=== PATIENT | female | born 1970 | race Caucasian/White ===

== ENCOUNTER 2016-08-10 13:44 | Inpatient (IN) ==
--- NOTE | 2016-08-10 14:44 | Emergency Department Note ---
START Narrative - START START: I have examined and evaluated the patient with the resident and agree with her findings assessment and plan. I sprig direct [id number] time with the patient. The patient has had recurrent bloody stool. She has lost weight. She was seen by her primary care provider who noted an extremely low hemoglobin and recommended the patient come to the ED. The patient denies chest pain shortness of breath or charlette abdominal pain there is no history of syncope leg swelling or coughing up blood. She has no major medical problems. She has no history of cancer or Crohn's disease or ulcerative colitis. The patient has had no fever. She complains of generalized weakness. She is being treated for UTI. The patient is not anticoagulated. The patient complained of a headache. There is no history of trauma. No history of neurologic defects weakness or numbness the arms or legs bowel or bladder problems confusion convulsion or dysarthria. Physical examination reveals a cachectic female lying supine she appears to be somewhat jaundiced. She is alert however, smiling and talkative. She cooperates with physical examination answers questions properly. Follows commands well. HEENT normal cephalic atraumatic neck is supple or because moist oropharynx clear. Tympanic is clear. Exposed skin warm and dry without petechia or purpura. An element of what appears to be jaundice is noted. Cardiovascular S1 and S2 audible. Lungs clear to auscultation bilaterally without wheezes Dami rales or crackles. Abdomen soft nontender nondistended no rebound rigidity or guarding. Extremities warm and well perfused without cyanosis or edema. Neurologic muscle strength and sensation are intact cranial nerves II through XII are grossly intact. Rectal exam per resident: Bright red blood per rectum. Heme positive stool. Marked anemia appreciated. Chest x-ray negative. CT scans were ordered. Transfusion ordered. Patient is pending admission. Hospitalist consulted and has accepted the patient. Impression: Gastric intestinal bleeding Anemia Weight loss Headache. The patient likely has a colonic source for her bleeding. She is currently stable pending admission to the hospital. Further evaluation per the admitting team and consultants. CT head abdomen pelvis been ordered.
[2016-08-10 15:00] LABS: Basophils % 0.4 %; Mean Corpuscular Hemoglobin 15.6 pg (28.0-33.3)
[2016-08-10 15:02] LABS: Eosinophils # 0.1 K/mcL (0.0-0.6); Eosinophils % 1.6 %; Hematocrit 19.7 % (35.3-44.9); Mean Corpuscular HGB Conc 25.4 g/dL (31.6-35.5); Mean Corpuscular Volume 61.4 fL (83.0-100.0); Mean Platelet Volume 10.4 fL (9.4-12.4); Monocytes # 0.6 K/mcL (0.0-1.3); Monocytes % 8.6 %; Neutrophils # 5.3 K/mcL (1.6-8.9); Platelet Count 366 K/mcL (140-400); Red Blood Count 3.21 M/mcL (3.82-4.97); Red Cell Distribution Width 20.1 % (11.5-14.5); Segmented Neutrophils % 74.4 %
[2016-08-10 15:13] LABS: BUN/Creatinine Ratio 17 (6-26); Blood Urea Nitrogen 14 mg/dL (7-20); Calcium 8.7 mg/dL (8.6-10.8); Carbon Dioxide 29 mEq/L (19-29); Chloride 101 mEq/L (98-109); Glucose 107 mg/dL (70-99); Osmolality,Calculated 287 (280-300); Sodium 138 mEq/L (136-145); eGFR For African Americans > 60 (> 60); eGFR For Non-African Americans > 60 (> 60)
[2016-08-10 15:14] LABS: Albumin 2.6 g/dL (3.5-5.0); Albumin/Globulin Ratio 0.7 (1.1-2.2); Bilirubin,Direct 0.1 mg/dL (0.0-0.5); Bilirubin,Indirect 0.2 mg/dL (0.0-1.2); Bilirubin,Total 0.3 mg/dL (0.2-1.2); Globulin 3.8 g/dL (2.4-3.5); Total Protein 6.4 g/dL (6.0-8.3)
[2016-08-10 15:20] LABS: INR 1.1; Prothrombin Time 12.3 Seconds (9.4-12.1)
[2016-08-10 15:22] LABS: Platelet Estimate Normal (Normal)
[2016-08-10 15:23] LABS: Activated Partial Thrombo Time 26.3 Seconds (26.0-36.0); Anisocytosis 1+ (Not Present); Hypochromasia Present (Not Present); Microcytosis Present (Not Present)
--- NOTE | 2016-08-10 15:24 | Emergency Department Note ---
Disposition Clinical Impression: Bright red blood per rectum, Unintentional weight loss Anemia Qualifiers: Anemia type: unspecified type Qualified Code(s): D64.9 - Anemia, unspecified Disposition: Admitted As Inpatient Condition: Fair Referrals: NO,PCP [Non-Partnered Physician] - Forms: ED Satisfaction Letter Time of Disposition: 16:44 Recheck wound or abnormal lab - General Chief Complaint: ED Recheck/Abnormal Lab/Rx Stated Complaint: Low red blood cell count Time Seen by Provider: 08/10/16 14:00 Source: patient, family Mode of arrival: ambulatory Limitations: no limitations Nursing Notes Reviewed: Yes Vital Signs Reviewed: Yes - History of Present Illness HPI Narrative: 45 year old female with no reported Past medical history on no home medications. Patient states she went to see her PCP yesterday for chronic fatigue, and not feeling well in general. Prior to that, the last time she had gone to the doctor was in 2008. For about a week, she has been feeling very dehydrated, had been having chills, sweats, headache, and chronic fatigue (also has been having perimenopausal symptoms). She went to her PCP and had labs drawn. She was called by her PCP later in the day and told to come to the ED because her Hemoglobin was low. Patient is denying nausea and vomiting. She does report occasional episodes of diarrhea with bright red blood that has been going on since about 2009. She also complains of having bloody formed bowel movements as well, and this has been a chronic issue. Patient had not followed up with doctor for her bloody bowel movements since it started in 2009. SHe also has been having chronic problems with constipation. Furthermore she has had weight loss that was initially intentional, but has had unintentional weight loss as well over the past year. She was a size 14 in 2008, and is now a size 2. She does report headache. She denies hematuria, denies abdominal pain. She denies chest pain, denies shortness of breath. She occasioanlly drinks, denies alcohol abuse, denies IV drug use, denies tobacco use. she never has had a colonoscopy before. Pt Subjective Complaint: abnormal lab(s) (low Hg. ) Initial Visit (ago): day(s) Initial Visit For: other (abnormal labs. ) Symptoms Since Prior Visit: fever (worsening fatigue, weight loss. ) Associated symptoms: chills - Related Data Previous Rx's Medication Instructions Recorded Ibuprofen [Motrin] 600 mg PO Q8HR PRN #20 tab 06/05/16 Allergies Allergy/AdvReac Type Severity Reaction Status Date / Time No Known Allergies Allergy Verified 06/05/16 19:17 All systems ED: reviewed and negative except as stated. Past Medical History - Past Medical History Medical history: Reports: non-contributory Surgical history: Reports: non-contributory Psychiatric history: Reports: no psych history - Social History Smoking Status: Unknown if ever smoked Alcohol use: Reports: none Drug use: Reports: none Physical Exam - General Limitations: no limitations General appearance: alert, in no apparent distress - Head Head exam: atraumatic, normocephalic - Eye Eye exam: Present: normal appearance - Neck Neck exam: Present: normal inspection, trachea midline - Respiratory Respiratory exam: Present: normal lung sounds bilaterally - Cardiovascular Cardiovascular exam: Present: regular rate, normal rhythm, +S1, +S2 - Abdominal Exam Abdominal exam: Present: soft, Non-Tender - Rectal Exam Slackman present during exam: Yes Rectal exam: Present: normal rectal tone, heme (+) stool, bloody stool, hemorrhoids - Extremities Exam Extremities exam: Present: normal inspection - Back Exam Back exam: Present: normal inspection - Neurological Exam Neurological exam: Present: alert, oriented X3 - Psychiatric Psychiatric exam: Present: depressed, agitated - Skin Skin exam: Present: other (patient is jaundiced throughout. no scleral icterus present. ) Course Vital Signs Temperature 98.1 F 08/10/16 13:57 Pulse Rate 80 08/10/16 13:57 Respiratory Rate 14 08/10/16 13:57 Blood Pressure 98/62 08/10/16 13:57 O2 Sat by Pulse Oximetry 100 08/10/16 13:57 Temperature 98.1 F 08/10/16 13:57 Pulse Rate 87 08/10/16 16:16 Respiratory Rate 17 08/10/16 16:16 Blood Pressure 103/61 08/10/16 16:16 O2 Sat by Pulse Oximetry 100 08/10/16 16:16 Oxygen Delivery Oxygen Delivery Room Air Recheck wound or abnormal lab - MDM Narrative Medical decision making narrative: CBC showed Hg of 5. BMP unremarkable, CRP 75. test negative. PT/INR were within normal limits. patient will be give one liter IV fluid bolus with 2 units of PRBCs transfused. Hemorrhoids were seen on rectal exam, and there was bright red blood present on rectal exam as well. CXR was unremarkable. Urinalysis is pending. Spoke with Ada Zaidi, who has accepted the patient for admission for further anemia workup. - Medical Records Medical records reviewed: Yes I reviewed the patient's medical records. - Lab Data Lab results reviewed: Yes I reviewed the patient's lab results. Result diagrams: 08/10/16 14:53 08/10/16 14:53 Lab Results 08/10/16 08/10/16 08/10/16 Range/Units 14:53 14:53 14:53 WBC 7.1 (4.3-11.1) K/mcL RBC 3.21 L (3.82-4.97) M/mcL Hgb 5.0 L* (11.5-15.4) g/dL Hct 19.7 L (35.3-44.9) % MCV 61.4 L (83.0-100.0) fL MCH 15.6 L (28.0-33.3) pg MCHC 25.4 L (31.6-35.5) g/dL RDW 20.1 H (11.5-14.5) % Plt Count 366 (140-400) K/mcL MPV 10.4 (9.4-12.4) fL Immature Gran % 1.0 (0-4) % Seg Neutrophils % 74.4 % Lymphocytes % 14.0 % Monocytes % 8.6 % Eosinophils % 1.6 % Basophils % 0.4 % Neutrophils # 5.3 (1.6-8.9) K/mcL Lymphocytes # 1.0 (0.6-4.6) K/mcL Monocytes # 0.6 (0.0-1.3) K/mcL Eosinophils # 0.1 (0.0-0.6) K/mcL Basophils # 0.0 (0.0-0.2) K/mcL Platelet Estimate Normal (Normal) Polychromasia 1+ A (Not Present) Hypochromasia Present A (Not Present) Poikilocytosis 2+ A (Not Present) Anisocytosis 1+ A (Not Present) Microcytosis Present A (Not Present) PT 12.3 H (9.4-12.1) Seconds INR 1.1 APTT 26.3 (26.0-36.0) Seconds Sodium 138 (136-145) mEq/L Potassium 4.0 (3.5-4.5) mEq/L Chloride 101 (98-109) mEq/L Carbon Dioxide 29 (19-29) mEq/L BUN 14 (7-20) mg/dL Creatinine 0.81 (0.57-1.11) mg/dL Est GFR ( Amer) > 60 (> 60) Est GFR (Non-Af Amer) > 60 (> 60) BUN/Creatinine Ratio 17 (6-26) Glucose 107 H (70-99) mg/dL Calculated Osmolality 287 (280-300) Calcium 8.7 (8.6-10.8) mg/dL Total Bilirubin (0.2-1.2) mg/dL Direct Bilirubin (0.0-0.5) mg/dL Indirect Bilirubin (0.0-1.2) mg/dL AST (5-34) Units/L ALT (0-55) Units/L Alkaline Phosphatase (38-126) Units/L C-Reactive Protein (Less than 5) mg/L Serum Total Protein (6.0-8.3) g/dL Albumin (3.5-5.0) g/dL Globulin (2.4-3.5) g/dL Albumin/Globulin Ratio (1.1-2.2) TSH 1.473 (0.350-4.840) mcIU/mL Serum , Qual (Negative) Blood Type Antibody Screen Crossmatch 08/10/16 08/10/16 08/10/16 Range/Units 14:53 14:53 14:53 WBC (4.3-11.1) K/mcL RBC (3.82-4.97) M/mcL Hgb (11.5-15.4) g/dL Hct (35.3-44.9) % MCV (83.0-100.0) fL MCH (28.0-33.3) pg MCHC (31.6-35.5) g/dL RDW (11.5-14.5) % Plt Count (140-400) K/mcL MPV (9.4-12.4) fL Immature Gran % (0-4) % Seg Neutrophils % % Lymphocytes % % Monocytes % % Eosinophils % % Basophils % % Neutrophils # (1.6-8.9) K/mcL Lymphocytes # (0.6-4.6) K/mcL Monocytes # (0.0-1.3) K/mcL Eosinophils # (0.0-0.6) K/mcL Basophils # (0.0-0.2) K/mcL Platelet Estimate (Normal) Polychromasia (Not Present) Hypochromasia (Not Present) Poikilocytosis (Not Present) Anisocytosis (Not Present) Microcytosis (Not Present) PT (9.4-12.1) Seconds INR APTT (26.0-36.0) Seconds Sodium (136-145) mEq/L Potassium (3.5-4.5) mEq/L Chloride (98-109) mEq/L Carbon Dioxide (19-29) mEq/L BUN (7-20) mg/dL Creatinine (0.57-1.11) mg/dL Est GFR ( Amer) (> 60) Est GFR (Non-Af Amer) (> 60) BUN/Creatinine Ratio (6-26) Glucose (70-99) mg/dL Calculated Osmolality (280-300) Calcium (8.6-10.8) mg/dL Total Bilirubin 0.3 (0.2-1.2) mg/dL Direct Bilirubin 0.1 (0.0-0.5) mg/dL Indirect Bilirubin 0.2 (0.0-1.2) mg/dL AST 13 (5-34) Units/L ALT 12 (0-55) Units/L Alkaline Phosphatase 108 (38-126) Units/L C-Reactive Protein 75 H (Less than 5) mg/L Serum Total Protein 6.4 (6.0-8.3) g/dL Albumin 2.6 L (3.5-5.0) g/dL Globulin 3.8 H (2.4-3.5) g/dL Albumin/Globulin Ratio 0.7 L (1.1-2.2) TSH (0.350-4.840) mcIU/mL Serum , Qual Negative (Negative) Blood Type A POSITIVE Antibody Screen NEGATIVE Crossmatch See Detail - Radiology Data Radiology results reviewed: Yes I reviewed the patient's radiology results.
[2016-08-10 15:29] LABS: Poikilocytosis 2+ (Not Present); Polychromasia 1+ (Not Present)
[2016-08-10] MEDS: 0.9 % Sodium Chloride 1,000 ML IVC ONE (15:34)
[2016-08-10 15:48] LABS: Thyroid Stimulating Hormone 1.473 mcIU/mL (0.350-4.840)
[2016-08-10] MEDS ORDERED: 0.9 % Sodium Chloride 1,000 ML ONE (17:20)
[2016-08-10 17:59] LABS: Bilirubin,Urine Negative (Negative); Blood,Urine Negative (Negative); Clarity,Urine Clear (Clear); Color,Urine Yellow (Yellow); Glucose,Urine (UA) Normal (Normal); Ketones,Urine Negative (Negative); Leukocyte Esterase,Urine Moderate (Negative); Nitrite,Urine Negative (Negative); Protein,Urine Negative (Neg-Trace); Specific Gravity,Urine 1.011 (1.010-1.025); Urobilinogen,Urine Normal (Normal)
[2016-08-10 18:02] LABS: Bacteria,Urine None Seen per hpf (None-Few); Hyaline Casts,Urine None Seen per lpf (None-Few); RBC,Urine 0-3 per hpf (0-3); Squamous Epithelial Cell,Urine Many per lpf (None-Few)
[2016-08-10] MEDS ORDERED: Ondansetron ODT 4 MG TAB.RAPDIS SL PRN (18:57)
[2016-08-10] MEDS ORDERED: Naloxone 0.4 MG/ML INJ IVP PRN (18:57)
[2016-08-10] MEDS ORDERED: Acetaminophen 325 MG TABLET PO PRN (18:57)
--- NOTE | 2016-08-10 19:47 | Internal Med History&Physical ---
<HutchisonEwelina M - Last Filed: 08/10/16 21:49> Date of Encounter: 08/10/16 Time of Encounter: 19:44 Assessment and Plan (1) Bright red blood per rectum Current visit: Yes Status: Acute Patient reports bright red blood in stool on and off since 2009. She attributed it to constipation and hemorrhoids. Now with Hgb of 5.0. CT of abd/pelvis ordered. 2 units packed RBCs check Hgb/Hct q6 hrs consult to gastroenterology for scope. (2) Anemia Current visit: Yes Status: Acute Patient with Hgb of 5.0. Likely secondary to lower GI bleed with reports of bright red blood in stool on and off since 2009. 2 units Packed RBCs ordered. check Hgb/Hct Q6 hrs consult to gastroenterology. NPO after midnight. Qualifiers: Anemia type: unspecified type Qualified Code(s): D64.9 - Anemia, unspecified (3) Unintentional weight loss Current visit: Yes Status: Acute Patient reports she changed her diet in 2008 and went from a size 14 to a size 4 intentionally after the diet changed. She maintained that weight and size up until recently, when she reports she's had some unplanned weight loss. She reports going from a size 4 to a size 2 in the last 6 months. Concern for malignancy given patient's anemia, bloody stools on and off. CT of abdomen and pelvis ordered and pending. GI consulted for scope. (4) DVT prophylaxis Current visit: Yes Status: Acute sequential compression devices Pharmacologic prophylaxis contraindicated in patient with GI bleed. Internal Medicine - H&P: HPI Chief complaint: anemia Admitted From: Emergency Dept Plans for Post Hospital Care: Home History of present illness: Ms. Nieto is a 45 year old female with no significant past medical history presented to the emergency department on instruction of her primary care provider when lab results from yesterday's visit came back showing a hemoglobin of 5.2. Patient had presented to primary care with complaints of headache, fatigue, chills and sweats. Patient reports that she felt like last week she overdid it when caring for her mother and realized she had not eaten all day and felt dehydrated. She reported symptoms of a headache, fatigue, aches and pains, and tried to treat at home with fluids. When she did not feel better on Tuesday she went to the PCP who [facility] labs. Hemoglobin came back 5.0. Patient reports that she does have occasional bright red blood per rectum and in her stools on and off since 2009. She attributed that to hemorrhoids and constipation. He also reports unintentional weight loss in the last 6 months, reporting she went from a size 4 to size 2. Evaluation in the emergency department revealed positive bright red blood per rectum, hemoglobin of 5.0, hematocrit of 19.7. Albumin was low at 2.6, TSH was within normal limits. Chest x-ray showed no acute cardiopulmonary disease. Patient was given 1 L of fluids and 2 units of packed red blood cells were ordered. CT of the abdomen and pelvis and CT of the head are ordered and pending. On exam, patient is cachectic, alert and oriented, in no acute distress. Heart has regular rate and rhythm, lungs are clear bilaterally to auscultation. Past Med Surg Social Fam HX - Past Medical History Medical history: non-contributory Psychiatric history: no psych history - Past Surgical History Surgical History: herniorrhaphy - Social History Smoking Status: Former smoker Alcohol use: none Drug use: none - Family History Father Living Status: Mother Living Status: Still Living Internal Medicine - H&P: Meds Acetaminophen [Tylenol] 325 mg PO Q6HR PRN 08/10/16 [History] Ciprofloxacin [Cipro] 500 mg PO BID 08/10/16 [History] Allergies codeine Adverse Reaction (Verified 08/10/16 17:24) Migraine All Systems PM: A 10-system review of systems was performed and is negative for pertinent findings except as documented above in the HPI. - Constitutional Constitutional: fatigue, weight loss, no chills, no fever(s), no night sweats - EENT Eyes: no change in vision, no discharge, no pain, no photophobia Ears: no ear discharge, no ear pain, no tinnitus Nose, mouth and throat: no dysphagia, no nasal discharge, no neck pain, no sore throat - Cardiovascular Cardiovascular ROS IM: dyspnea on exertion, no chest pain, no diaphoresis, no dyspnea, no lightheadedness, no palpitations, no syncope - Respiratory Respiratory: dyspnea on exertion, no cough, no dyspnea, no wheezing, no excessive phlegm production - Gastrointestinal Gastrointestinal: hematochezia, no abdominal pain, no diarrhea, no hematemesis, no melena, no nausea, no vomiting - Genitourinary Genitourinary: no change in urinary stream, no dysuria, no flank pain, no hematuria - Musculoskeletal Musculoskeletal ROS IM: no numbness, no tingling - Integumentary Integumentary IM: no rash, no unusual bruising - Neurological Neurological ROS: no confusion, no convulsions, no focal weakness, no numbness, no tingling, no tremor(s) - Hematologic/Lymphatic Hematologic/Lymphatic: no easy bruising - Constitutional Vitals: Temp Pulse Resp BP Pulse Ox 97.9 F 81 16 107/69 100 08/10/16 17:41 08/10/16 17:41 08/10/16 18:17 08/10/16 18:17 08/10/16 17:41 General appearance: Present: A&O X 3, pleasant, no acute distress - Head Head exam: Present: atraumatic, normocephalic - Eye Eye exam: Present: PERRL, conjuntiva pink, sclera anicteric Pupils: Present: PERRL - Neck Neck exam general surgery: Present: supple, trachea midline. Absent: lymphadenopathy - Respiratory Respiratory exam: Present: CTAB. Absent: accessory muscle use, rales, rhonchi, wheezes - Cardiovascular Cardiovascular exam: Present: RRR, +S1, +S2. Absent: diastolic murmur, gallop, rubs, systolic murmur - GI/Abdominal GI/Abdominal exam: Present: normal bowel sounds, soft, tenderness, no peritoneal signs. Absent: distended - Extremities Exam Extremities exam: Present: warm, radial pulses palpable and symetrical. Absent : calf tenderness, cyanotic, pedal edema - Neurological Exam Neurological exam: Present: CN II-XII intact, oriented X3, no focal deficits. Absent: facial droop, speech deficit - Skin Skin exam: Present: dry, intact Internal Med - H&P Results - Labs CBC & Chem 7: 08/10/16 14:53 08/10/16 14:53 Labs: All Lab Results (24 Hours) 08/10/16 08/10/16 08/10/16 Range/Units 14:53 14:53 14:53 WBC 7.1 (4.3-11.1) K/mcL RBC 3.21 L (3.82-4.97) M/mcL Hgb 5.0 L* (11.5-15.4) g/dL Hct 19.7 L (35.3-44.9) % MCV 61.4 L (83.0-100.0) fL MCH 15.6 L (28.0-33.3) pg MCHC 25.4 L (31.6-35.5) g/dL RDW 20.1 H (11.5-14.5) % Plt Count 366 (140-400) K/mcL MPV 10.4 (9.4-12.4) fL Immature Gran % 1.0 (0-4) % Seg Neutrophils % 74.4 % Lymphocytes % 14.0 % Monocytes % 8.6 % Eosinophils % 1.6 % Basophils % 0.4 % Neutrophils # 5.3 (1.6-8.9) K/mcL Lymphocytes # 1.0 (0.6-4.6) K/mcL Monocytes # 0.6 (0.0-1.3) K/mcL Eosinophils # 0.1 (0.0-0.6) K/mcL Basophils # 0.0 (0.0-0.2) K/mcL Platelet Estimate Normal (Normal) Polychromasia 1+ A (Not Present) Hypochromasia Present A (Not Present) Poikilocytosis 2+ A (Not Present) Anisocytosis 1+ A (Not Present) Microcytosis Present A (Not Present) PT 12.3 H (9.4-12.1) Seconds INR 1.1 APTT 26.3 (26.0-36.0) Seconds Sodium 138 (136-145) mEq/L Potassium 4.0 (3.5-4.5) mEq/L Chloride 101 (98-109) mEq/L Carbon Dioxide 29 (19-29) mEq/L BUN 14 (7-20) mg/dL Creatinine 0.81 (0.57-1.11) mg/dL Est GFR ( Amer) > 60 (> 60) Est GFR (Non-Af Amer) > 60 (> 60) BUN/Creatinine Ratio 17 (6-26) Glucose 107 H (70-99) mg/dL Calculated Osmolality 287 (280-300) Calcium 8.7 (8.6-10.8) mg/dL Total Bilirubin (0.2-1.2) mg/dL Direct Bilirubin (0.0-0.5) mg/dL Indirect Bilirubin (0.0-1.2) mg/dL AST (5-34) Units/L ALT (0-55) Units/L Alkaline Phosphatase (38-126) Units/L C-Reactive Protein (Less than 5) mg/L Serum Total Protein (6.0-8.3) g/dL Albumin (3.5-5.0) g/dL Globulin (2.4-3.5) g/dL Albumin/Globulin Ratio (1.1-2.2) TSH 1.473 (0.350-4.840) mcIU/mL Serum , Qual (Negative) Urine Color (Yellow) Urine Clarity (Clear) Urine pH (5.0-8.0) pH Units Ur Specific [place] (1.010-1.025) Urine Protein (Neg-Trace) mg/dL Urine Glucose (UA) (Normal) mg/dL Urine Ketones (Negative) mg/dL Urine Blood (Negative) Urine Nitrite (Negative) Urine Bilirubin (Negative) Urine Urobilinogen (Normal) mg/dL Ur Leukocyte Esterase (Negative) Urine Microscopic RBC (0-3) per hpf Urine Microscopic WBC (0-3) per hpf Ur Squamous Epith Cells (None-Few) per lpf Urine Bacteria (None-Few) per hpf Hyaline Casts (None-Few) per lpf Ur Culture Indicated? (NO) Stool Occult Blood (Negative) Blood Type Antibody Screen Crossmatch 08/10/16 08/10/16 08/10/16 Range/Units 14:53 14:53 14:53 WBC (4.3-11.1) K/mcL RBC (3.82-4.97) M/mcL Hgb (11.5-15.4) g/dL Hct (35.3-44.9) % MCV (83.0-100.0) fL MCH (28.0-33.3) pg MCHC (31.6-35.5) g/dL RDW (11.5-14.5) % Plt Count (140-400) K/mcL MPV (9.4-12.4) fL Immature Gran % (0-4) % Seg Neutrophils % % Lymphocytes % % Monocytes % % Eosinophils % % Basophils % % Neutrophils # (1.6-8.9) K/mcL Lymphocytes # (0.6-4.6) K/mcL Monocytes # (0.0-1.3) K/mcL Eosinophils # (0.0-0.6) K/mcL Basophils # (0.0-0.2) K/mcL Platelet Estimate (Normal) Polychromasia (Not Present) Hypochromasia (Not Present) Poikilocytosis (Not Present) Anisocytosis (Not Present) Microcytosis (Not Present) PT (9.4-12.1) Seconds INR APTT (26.0-36.0) Seconds Sodium (136-145) mEq/L Potassium (3.5-4.5) mEq/L Chloride (98-109) mEq/L Carbon Dioxide (19-29) mEq/L BUN (7-20) mg/dL Creatinine (0.57-1.11) mg/dL Est GFR ( Amer) (> 60) Est GFR (Non-Af Amer) (> 60) BUN/Creatinine Ratio (6-26) Glucose (70-99) mg/dL Calculated Osmolality (280-300) Calcium (8.6-10.8) mg/dL Total Bilirubin 0.3 (0.2-1.2) mg/dL Direct Bilirubin 0.1 (0.0-0.5) mg/dL Indirect Bilirubin 0.2 (0.0-1.2) mg/dL AST 13 (5-34) Units/L ALT 12 (0-55) Units/L Alkaline Phosphatase 108 (38-126) Units/L C-Reactive Protein 75 H (Less than 5) mg/L Serum Total Protein 6.4 (6.0-8.3) g/dL Albumin 2.6 L (3.5-5.0) g/dL Globulin 3.8 H (2.4-3.5) g/dL Albumin/Globulin Ratio 0.7 L (1.1-2.2) TSH (0.350-4.840) mcIU/mL Serum , Qual Negative (Negative) Urine Color (Yellow) Urine Clarity (Clear) Urine pH (5.0-8.0) pH Units Ur Specific [place] (1.010-1.025) Urine Protein (Neg-Trace) mg/dL Urine Glucose (UA) (Normal) mg/dL Urine Ketones (Negative) mg/dL Urine Blood (Negative) Urine Nitrite (Negative) Urine Bilirubin (Negative) Urine Urobilinogen (Normal) mg/dL Ur Leukocyte Esterase (Negative) Urine Microscopic RBC (0-3) per hpf Urine Microscopic WBC (0-3) per hpf Ur Squamous Epith Cells (None-Few) per lpf Urine Bacteria (None-Few) per hpf Hyaline Casts (None-Few) per lpf Ur Culture Indicated? (NO) Stool Occult Blood (Negative) Blood Type A POSITIVE Antibody Screen NEGATIVE Crossmatch See Detail 08/10/16 08/10/16 Range/Units 16:23 17:49 WBC (4.3-11.1) K/mcL RBC (3.82-4.97) M/mcL Hgb (11.5-15.4) g/dL Hct (35.3-44.9) % MCV (83.0-100.0) fL MCH (28.0-33.3) pg MCHC (31.6-35.5) g/dL RDW (11.5-14.5) % Plt Count (140-400) K/mcL MPV (9.4-12.4) fL Immature Gran % (0-4) % Seg Neutrophils % % Lymphocytes % % Monocytes % % Eosinophils % % Basophils % % Neutrophils # (1.6-8.9) K/mcL Lymphocytes # (0.6-4.6) K/mcL Monocytes # (0.0-1.3) K/mcL Eosinophils # (0.0-0.6) K/mcL Basophils # (0.0-0.2) K/mcL Platelet Estimate (Normal) Polychromasia (Not Present) Hypochromasia (Not Present) Poikilocytosis (Not Present) Anisocytosis (Not Present) Microcytosis (Not Present) PT (9.4-12.1) Seconds INR APTT (26.0-36.0) Seconds Sodium (136-145) mEq/L Potassium (3.5-4.5) mEq/L Chloride (98-109) mEq/L Carbon Dioxide (19-29) mEq/L BUN (7-20) mg/dL Creatinine (0.57-1.11) mg/dL Est GFR ( Amer) (> 60) Est GFR (Non-Af Amer) (> 60) BUN/Creatinine Ratio (6-26) Glucose (70-99) mg/dL Calculated Osmolality (280-300) Calcium (8.6-10.8) mg/dL Total Bilirubin (0.2-1.2) mg/dL Direct Bilirubin (0.0-0.5) mg/dL Indirect Bilirubin (0.0-1.2) mg/dL AST (5-34) Units/L ALT (0-55) Units/L Alkaline Phosphatase (38-126) Units/L C-Reactive Protein (Less than 5) mg/L Serum Total Protein (6.0-8.3) g/dL Albumin (3.5-5.0) g/dL Globulin (2.4-3.5) g/dL Albumin/Globulin Ratio (1.1-2.2) TSH (0.350-4.840) mcIU/mL Serum , Qual (Negative) Urine Color Yellow (Yellow) Urine Clarity Clear (Clear) Urine pH 7.0 (5.0-8.0) pH Units Ur Specific [place] 1.011 (1.010-1.025) Urine Protein Negative (Neg-Trace) mg/dL Urine Glucose (UA) Normal (Normal) mg/dL Urine Ketones Negative (Negative) mg/dL Urine Blood Negative (Negative) Urine Nitrite Negative (Negative) Urine Bilirubin Negative (Negative) Urine Urobilinogen Normal (Normal) mg/dL Ur Leukocyte Esterase Moderate H (Negative) Urine Microscopic RBC 0-3 (0-3) per hpf Urine Microscopic WBC 5-15 H (0-3) per hpf Ur Squamous Epith Cells Many H (None-Few) per lpf Urine Bacteria None Seen (None-Few) per hpf Hyaline Casts None Seen (None-Few) per lpf Ur Culture Indicated? YES A (NO) Stool Occult Blood Positive A (Negative) Blood Type Antibody Screen Crossmatch - Diagnostic Studies Chest x-ray Additional comments: Chest X-Ray 08/10/16 15:30 IMPRESSION: 1. No active pulmonary disease. D/ / Lamonte Waters MD / Lamonte Waters MD Interpreting Provider: Lamonte Waters MD <Kaleb Lopez H - Last Filed: 08/10/16 21:55> Date of Encounter: 08/10/16 Internal Medicine - H&P: HPI History of present illness: Ms. Nieto is a 45 year old female All Systems PM: A 10-system review of systems was performed and is negative for pertinent findings except as documented above in the HPI. - Constitutional Vitals: Temp Pulse Resp BP Pulse Ox 98.5 F 77 16 109/68 98 08/10/16 20:47 08/10/16 20:47 08/10/16 20:47 08/10/16 20:47 08/10/16 20:47 Internal Med - H&P Results - Labs CBC & Chem 7: 08/10/16 14:53 08/10/16 14:53 Labs: Urine 08/10/16 Range/Units 17:49 Urine Color Yellow (Yellow) Urine Clarity Clear (Clear) Urine pH 7.0 (5.0-8.0) pH Units Ur Specific [place] 1.011 (1.010-1.025) Urine Protein Negative (Neg-Trace) mg/dL Urine Glucose (UA) Normal (Normal) mg/dL - Attending Attestation 1. Acute blood lows anemia likely secondary to rectal bleed, accompanied by weight loss worrisome for possible malignancy Consult GI, start GoLYTELY tonight and prepare the patient for a possible colonoscopy in the morning, if the colonoscopy Ib able to be scheduled tomorrow we will keep the patient on clear liquids The patient will receive 2 units of red blood cells, consider further transfusions after monitoring CBC Await report of the CT scan 2. Malnutrition likely secondary to malabsorption 3. Weight loss 4. Hypoproteinemia likely related to malnutrition Protonix 40 GI prophylaxis and sequential compression devices for DVT prophylaxis. The patient will be admitted as inpatient, expected to stay more than 2 midnights. Full code. Time spent on this admission 40 minutes. I examined this patient and my medical decision-making was reviewed with the FOUR SLIDE MACHINE SETTER/PA/Advanced Practice Nurse/Resident Physician. I agree with the documented findings, disposition and treatment plan as described except to the extent set forth below.
[2016-08-10] MEDS ORDERED: SODIUM CHLORIDE/NAHCO3/KCL/PEG 4,000 ML SOLN.RECON PO ONE (21:43)
[2016-08-10 22:30] LABS: Hematocrit 22.9 % (35.3-44.9); Hemoglobin 6.2 g/dL (11.5-15.4)
[2016-08-10] MEDS: Pantoprazole 40 MG VIAL IVP SCH (23:19)
[2016-08-11] MEDS ORDERED: 0.9 % Sodium Chloride 250 ML ONE (01:15)
[2016-08-11] MEDS: Pantoprazole 40 MG VIAL IVP SCH ×2 (06:02→22:09)
[2016-08-11 06:20] LABS: Eosinophils % 0.2 %; Hemoglobin 7.2 g/dL (11.5-15.4)
[2016-08-11 06:22] LABS: Basophils # 0.1 K/mcL (0.0-0.2); Basophils % 0.6 %; Hematocrit 25.4 % (35.3-44.9); Immature Granulocytes % 1.5 % (0-4); Immature Platelets 3.4 % (1.1-6.1); Lymphocytes # 0.7 K/mcL (0.6-4.6); Lymphocytes % 8.7 %; Mean Corpuscular HGB Conc 28.3 g/dL (31.6-35.5); Mean Corpuscular Hemoglobin 19.3 pg (28.0-33.3); Mean Corpuscular Volume 68.1 fL (83.0-100.0); Mean Platelet Volume 10.1 fL (9.4-12.4); Monocytes # 0.6 K/mcL (0.0-1.3); Monocytes % 6.8 %; Neutrophils # 6.9 K/mcL (1.6-8.9); Platelet Count 383 K/mcL (140-400); Red Blood Count 3.73 M/mcL (3.82-4.97); Red Cell Distribution Width 26.5 % (11.5-14.5); Segmented Neutrophils % 82.2 %
[2016-08-11 06:39] LABS: BUN/Creatinine Ratio 12 (6-26); Blood Urea Nitrogen 9 mg/dL (7-20); Calcium 8.3 mg/dL (8.6-10.8); Carbon Dioxide 21 mEq/L (19-29); Chloride 108 mEq/L (98-109); Glucose 93 mg/dL (70-99); Osmolality,Calculated 286 (280-300); Sodium 139 mEq/L (136-145); eGFR For African Americans > 60 (> 60); eGFR For Non-African Americans > 60 (> 60)
[2016-08-11 06:53] LABS: Hypochromasia Present (Not Present)
[2016-08-11 06:54] LABS: Anisocytosis 1+ (Not Present); Microcytosis Present (Not Present); Ovalocytes 1+ (Not Present); Platelet Estimate Normal (Normal); Poikilocytosis 2+ (Not Present); Polychromasia 1+ (Not Present)
--- NOTE | 2016-08-11 08:22 | Internal Med Progress Note ---
<Anay Navarro - Last Filed: 08/11/16 11:43> Date of Encounter: 08/11/16 Time of Encounter: 08:19 - Assessment and plan (1) Anemia Current Visit: Yes Status: Acute Assessment and plan: presented with a HB of 5 and BRB per rectum, received 2u PRBCs Hb currently 7.2 , continues to have BRBPR GI consulted NPO may require further transfusion H/H q 6 Qualifiers: Anemia type: unspecified type Qualified Code(s): D64.9 - Anemia, unspecified (2) Bright red blood per rectum Current Visit: Yes Status: Acute (3) DVT prophylaxis Current Visit: Yes Status: Acute Assessment and plan: SCD no pharmacologic at this time due to current GI bleed (4) Unintentional weight loss Current Visit: Yes Status: Acute (5) Hypocalcemia Current Visit: Yes Status: Acute Assessment and plan: likely due to RBC transfusion will replace - Subjective Interval history: 45 yo F with history of chronic constipation and hemorrhoids presented with bright red blood in her stools and Hb 5.0 she received 2u PRBCs lastnight, continues to have brightred blood streaked in stools and on paper when she wipes. SHe states she is very fatigued. She denies and chest pain, SOB, no current lightheadedness or dizziness. - Constitutional Vitals: Temp Pulse Resp BP Pulse Ox 98 F 68 16 100/62 98 08/11/16 06:31 08/11/16 06:31 08/11/16 06:31 08/11/16 06:31 08/11/16 06:31 General appearance: Present: A&O X 3, pleasant, no acute distress, answers questions appropriately - Head Head exam: Present: atraumatic, normocephalic - Eye Eye exam: Present: EOMI, PERRL, conjuntiva pink, sclera anicteric Pupils: Present: PERRL - Neck Neck exam general surgery: Present: supple, trachea midline. Absent: lymphadenopathy - Respiratory Respiratory exam: Present: CTAB. Absent: accessory muscle use, rales, rhonchi, wheezes - Cardiovascular Cardiovascular exam: Present: RRR, +S1, +S2. Absent: diastolic murmur, gallop, rubs, systolic murmur - GI/Abdominal GI/Abdominal exam: Present: normal bowel sounds, soft, no peritoneal signs. Absent: distended, tenderness - Extremities Exam Extremities exam: Present: warm, radial pulses palpable and symetrical. Absent : calf tenderness, cyanotic, pedal edema, tenderness - Neurological Exam Neurological exam: Present: CN II-XII intact, oriented X3, no focal deficits. Absent: pronater drift, facial droop, speech deficit - Skin Skin exam: Present: intact, pallor, warm Internal Medicine: Result - Labs CBC & Chem 7: 08/11/16 06:02 08/11/16 06:02 Labs: Short CBC 08/10/16 08/11/16 Range/Units 22:17 06:02 WBC 8.4 (4.3-11.1) K/mcL Hgb 6.2 L 7.2 L (11.5-15.4) g/dL Hct 22.9 L 25.4 L (35.3-44.9) % Plt Count 383 (140-400) K/mcL Neutrophils # 6.9 (1.6-8.9) K/mcL BMP 08/11/16 06:02 Sodium 139 Potassium 4.0 Chloride 108 Carbon Dioxide 21 BUN 9 Creatinine 0.73 Glucose 93 Calcium 8.3 L Urine 08/10/16 Range/Units 17:49 Urine Color Yellow (Yellow) Urine Clarity Clear (Clear) Urine pH 7.0 (5.0-8.0) pH Units Ur Specific [place] 1.011 (1.010-1.025) Urine Protein Negative (Neg-Trace) mg/dL Urine Glucose (UA) Normal (Normal) mg/dL - ABG Interpretation ABG results: PT/INR, D-dimer PT 12.3 Seconds (9.4-12.1) H 08/10/16 14:53 - Impressions Impressions Abdomen/Pelvis CT 08/10/16 18:45 IMPRESSION: There is a questionable small amount of pericholecystic fluid surrounding the gallbladder. If there is concern for acute cholecystitis, right upper quadrant ultrasound may be helpful for further evaluation. Small 4 mm or less areas of nodularity are seen along the inferior fissures which may represent intrapulmonary lymph nodes. Moderate to large amount of stool is seen throughout the colon consistent with constipation. D/ / Jemma Vera MD / Jemma Vera MD Interpreting Provider: Jemma Vera MD Head CT 08/10/16 18:45 IMPRESSION: Negative CT head. D/ / Bennett Faye MD / Bennett Faye MD Interpreting Provider: Bennett Faye MD Consult Discharge Plan - Plan Referrals: Mahi Anderson, DRESSER TENDER [Primary Care Provider] - <León Latif A - Last Filed: 08/11/16 16:40> Date of Encounter: 08/11/16 - Assessment and plan (1) Bright red blood per rectum Current Visit: Yes Status: Acute (2) Anemia Current Visit: Yes Status: Acute Qualifiers: Anemia type: iron deficiency Iron deficiency anemia type: chronic blood loss Qualified Code(s): D50.0 - Iron deficiency anemia secondary to blood loss (chronic) (3) Unintentional weight loss Current Visit: Yes Status: Acute (4) Severe protein-calorie malnutrition Current Visit: Yes Status: Acute Assessment and plan: Supplement. - Constitutional Vitals: Temp Pulse Resp BP Pulse Ox 98.4 F 69 16 108/65 99 08/11/16 15:34 08/11/16 15:34 08/11/16 15:34 08/11/16 15:34 08/11/16 15:34 Internal Medicine: Result - Labs CBC & Chem 7: 08/11/16 13:32 08/11/16 06:02 Labs: Short CBC 08/10/16 08/11/16 08/11/16 Range/Units 22:17 06:02 13:32 WBC 8.4 (4.3-11.1) K/mcL Hgb 6.2 L 7.2 L 7.4 L (11.5-15.4) g/dL Hct 22.9 L 25.4 L 25.9 L (35.3-44.9) % Plt Count 383 (140-400) K/mcL Neutrophils # 6.9 (1.6-8.9) K/mcL BMP 08/11/16 06:02 Sodium 139 Potassium 4.0 Chloride 108 Carbon Dioxide 21 BUN 9 Creatinine 0.73 Glucose 93 Calcium 8.3 L Urine 08/10/16 Range/Units 17:49 Urine Color Yellow (Yellow) Urine Clarity Clear (Clear) Urine pH 7.0 (5.0-8.0) pH Units Ur Specific [place] 1.011 (1.010-1.025) Urine Protein Negative (Neg-Trace) mg/dL Urine Glucose (UA) Normal (Normal) mg/dL - ABG Interpretation ABG results: PT/INR, D-dimer PT 12.3 Seconds (9.4-12.1) H 08/10/16 14:53 - Impressions Impressions Abdomen/Pelvis CT 08/10/16 18:45 IMPRESSION: There is a questionable small amount of pericholecystic fluid surrounding the gallbladder. If there is concern for acute cholecystitis, right upper quadrant ultrasound may be helpful for further evaluation. Small 4 mm or less areas of nodularity are seen along the inferior fissures which may represent intrapulmonary lymph nodes. Moderate to large amount of stool is seen throughout the colon consistent with constipation. D/ / Jemma Vera MD / Jemma Vera MD Interpreting Provider: Jemma Vera MD Head CT 08/10/16 18:45 IMPRESSION: Negative CT head. D/ / Bennett Faye MD / Bennett Faye MD Interpreting Provider: Bennett Faye MD - Attending Attestation I examined this patient and my medical decision-making was reviewed with the Resident Physician on 08/11/16. I agree with the documented findings, disposition and treatment plan as described except to the extent set forth below. Ms. Nieto is currently admitted for acute LGI bleed and anemia. She is moderate to high risk due to potential recurrent bleeding. Ms. Nieto is resting comfortably. She is awaiting endoscopy. No current issues. Hemoglobin improved with transfusion. Still having some bleeding noted. Exam Alert. Comfortable Heart reg No edema I/P 1. GI bleed 2. Anemia Further diagnoses and plan as above.
[2016-08-11] MEDS ORDERED: Calcium Gluconate 1,000 MG in D5% in Water 100 ML IVPB ONE (08:27)
--- NOTE | 2016-08-11 11:54 | Event Note ---
Date of Encounter: 08/11/16 Time of Encounter: 11:52 Chart reviewed, full consult tomorrow. Pt prepped overnight. Plan for EGD and colonoscopy. Keep NPO.
[2016-08-11 13:41] LABS: Hematocrit 25.9 % (35.3-44.9); Hemoglobin 7.4 g/dL (11.5-15.4)
[2016-08-11] MEDS ORDERED: 0.9 % Sodium Chloride 1,000 ML ONE (14:32)
[2016-08-11] MEDS: 0.9 % Sodium Chloride 1,000 ML IVC ONE (14:39)
[2016-08-11] MEDS ORDERED: *HR* FentaNYL (PF) 100 MCG/2 ML VIAL ONE (17:20)
[2016-08-11] MEDS ORDERED: *HR* Midazolam HCl 5 MG/5 ML VIAL IVP ONE (17:20)
[2016-08-11] MEDS ORDERED: *HR* FentaNYL (PF) 100 MCG/2 ML VIAL IVP PRN (17:40)
[2016-08-11] MEDS ORDERED: Tetracaine/Benzocaine/Butamben 200MG/SPRAY (100SPY/BOT) MM ONE (17:40)
[2016-08-11] MEDS ORDERED: Simethicone 40 MG/0.6 ML MLS IR ONE (17:40)
[2016-08-11] MEDS ORDERED: *HR* Midazolam HCl 5 MG/5 ML VIAL IVP PRN (17:40)
--- NOTE | 2016-08-11 17:41 | Pre-Sedation Evaluation ---
Pre-sedation evaluation - Pre-sedation checklist Date of procedure: 08/11/16 Procedure: egd/colonoscopy Recent Vitals: Last Vital Signs Temp 98.4 F 08/11/16 17:33 Pulse 69 08/11/16 17:33 Resp 16 08/11/16 17:33 BP 108/65 08/11/16 17:33 Pulse Ox 99 08/11/16 17:30 H&P (including ROS) documented in medical record: Yes Previous reaction to sedatives/anesthetics: No Dietary Status: NPO after Midnight Dentition: No loose teeth or bridges, full dentition ASA Classification *see protocol: CLASS II-Mild systemic disease Plan of Care: Pt appropriate candidate for procedure/moderate/conscious sedation , Risks/benefits of procedure/sedation discussed w/ patient/family
[2016-08-11 19:00] LABS: Hematocrit 23.2 % (35.3-44.9); Hemoglobin 6.5 g/dL (11.5-15.4)
[2016-08-12] MEDS: Pantoprazole 40 MG VIAL IVP SCH (05:12)
[2016-08-12 06:13] LABS: Hemoglobin 6.9 g/dL (11.5-15.4)
[2016-08-12 06:14] LABS: Hematocrit 24.3 % (35.3-44.9); Mean Corpuscular HGB Conc 28.4 g/dL (31.6-35.5); Mean Corpuscular Hemoglobin 19.5 pg (28.0-33.3); Mean Corpuscular Volume 68.8 fL (83.0-100.0); Mean Platelet Volume 10.6 fL (9.4-12.4); Platelet Count 407 K/mcL (140-400); Red Blood Count 3.53 M/mcL (3.82-4.97); Red Cell Distribution Width 27.1 % (11.5-14.5)
[2016-08-12 06:24] LABS: BUN/Creatinine Ratio 9 (6-26); Blood Urea Nitrogen 7 mg/dL (7-20); Calcium 8.1 mg/dL (8.6-10.8); Carbon Dioxide 23 mEq/L (19-29); Chloride 111 mEq/L (98-109); Glucose 79 mg/dL (70-99); Magnesium 1.8 mg/dL (1.6-2.6); Osmolality,Calculated 289 (280-300); Potassium 3.7 mEq/L (3.5-4.5); eGFR For African Americans > 60 (> 60); eGFR For Non-African Americans > 60 (> 60)
[2016-08-12 06:25] LABS: Sodium 141 mEq/L (136-145)
[2016-08-12] MEDS ORDERED: 0.9 % Sodium Chloride 500 ML ONE (11:26)
--- NOTE | 2016-08-12 11:28 | Gastroenterology Consult Note ---
<NewberrySandeep delacruz Tessa - Last Filed: 08/12/16 11:25> Date of Encounter: 08/12/16 Time of Encounter: 10:05 - Assessment and plan (1) Anemia Current Visit: Yes Status: Acute Assessment and plan: Continue to monitor CBC and transfuse as needed. 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 Awaiting pathology. Consult Oncology. 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 Consult Oncology. (3) Unintentional weight loss Current Visit: Yes Status: Acute Assessment and plan: As above. - Time Spent With Patient Total time spent is greater than 50% in coordination of care (as documented) at patient's floor/unit and/or counseling patient: GI History of Present Illness - Data of Consult Patient: new to practice Consult date: 08/12/16 Requesting Physician: Papo Nunez MD - Consult Narrative Reason for consult: GI Bleed History of present illness: Ms. Nieto is a 45 year old female with no significant past medical history presented to the ED on instruction of her PCP when lab results from yesterday's visit came back showing a hemoglobin of 5. Patient had presented to primary care with complaints of headache, fatigue, chills, and sweats which she tried to treat with fluids at home. When she did not feel better on Tuesday she went to the PCP who angel labs. Hgb came back 5 and has received 2 units PRBC. Hgb this AM 6.9. Patient reports that she does have occasional BRBPR on and off since 2009, which she attributed to hemorrhoids and constipation. She also reports unintentional weight loss in the last 6 months, reporting she went from a size [address] A/P with questionable small amount of pericolic cystic fluid surrounding the gallbladder and moderate to large amount of stool seen throughout the colon consistent with constipation. Procedures: None NSAIDs: None Anticoagulation: None Past Med Surg Social Fam HX - Past Medical History Medical history: non-contributory Psychiatric history: no psych history - Past Surgical History Surgical History: herniorrhaphy - Social History Smoking Status: Former smoker Alcohol use: none Drug use: none - Family History Father Living Status: Mother Living Status: Still Living Hx Family Cardiac Disorders: Yes (CHF, a-fib) Hx Family Cancer: Yes (Ovarian cancer) Hx Family Endocrine Disorder: Yes (DM) - Gastrointestinal Gastrointestinal: Present: as per HPI - Constitutional Constitutional: as per HPI - EENT Eyes: as per HPI Ears: Present: as per HPI Nose, mouth and throat: Present: as per HPI - Cardiovascular Cardiovascular ROS: Present: as per HPI - Respiratory Respiratory IM: Present: as per HPI - Genitourinary Genitourinary: Absent: change in color, Urinary frequency - Neurological ROS Neurological GI: Present: as per HPI - Hematologic/Lymphatic Hematologic/Lymphatic pediatric: Present: as per HPI - Musculoskeletal Musculoskeletal ROS GI: Present: as per HPI - Integumentary Integumentary GI: Present: as per HPI - Psychiatric ROS Psychiatric GI: Present: as per HPI - Endocrine Endocrine IM: Present: as per HPI - Constitutional Vitals: Temp Pulse Resp BP Pulse Ox 97.9 F 83 16 102/67 98 08/12/16 10:51 08/12/16 10:51 08/12/16 10:51 08/12/16 10:51 08/12/16 10:51 General appearance: Present: cooperative, A&O X 3, no acute distress, answers questions appropriately - Head Head exam: Present: atraumatic, normocephalic - Eye Eye exam: Present: normal appearance, sclera anicteric - ENT ENT exam: Present: mucous membranes moist - Neck Neck exam general surgery: Present: normal inspection, trachea midline - Respiratory Respiratory exam: Present: CTAB. Absent: rales, rhonchi, wheezes - Cardiovascular Cardiovascular exam: Present: RRR, +S1, +S2 - GI/Abdominal GI/Abdominal exam: Present: soft, no peritoneal signs. Absent: distended, firm , guarding, tenderness - Rectal Rectal exam: Present: deferred - Extremities Exam Extremities exam: Present: warm - Neurological Exam Neurological exam: Present: no focal deficits - Psychiatric Psychiatric exam: Present: normal affect, normal mood - Skin Skin exam: Present: dry, intact, normal color, warm Results - Labs CBC & Chem 7: 08/12/16 05:40 08/12/16 05:40 Labs: Last Result Calcium 8.1 mg/dL (8.6-10.8) L 08/12/16 05:40 C-Reactive Protein 75 mg/L (Less than 5) H 08/10/16 14:53 Stool Occult Blood Positive (Negative) A 08/10/16 16:23 Entire Visit Hgb 6.9 g/dL (11.5-15.4) L 08/12/16 05:40 Hct 24.3 % (35.3-44.9) L 08/12/16 05:40 PT 12.3 Seconds (9.4-12.1) H 08/10/16 14:53 Total Bilirubin 0.3 mg/dL (0.2-1.2) 08/10/16 14:53 AST 13 Units/L (5-34) 08/10/16 14:53 ALT 12 Units/L (0-55) 08/10/16 14:53 - ABG ABG results: PT/INR, D-dimer PT 12.3 Seconds (9.4-12.1) H 08/10/16 14:53 Consult Discharge Plan - Plan Referrals: Mahi Anderson, [employer] D[employer] MANAGER [Primary Care Provider] - <Chucky Giraldo - Last Filed: 08/12/16 14:08> Date of Encounter: 08/12/16 Time of Encounter: 14:00 - Time Spent With Patient Total time spent is greater than 50% in coordination of care (as documented) at patient's floor/unit and/or counseling patient: GI History of Present Illness - Data of Consult Requesting Physician: Papo Nunez MD - Consult Narrative History of present illness: Ms. Nieto is a 45 year old female - Constitutional Vitals: Temp Pulse Resp BP Pulse Ox 97.7 F 84 14 107/67 100 08/12/16 12:22 08/12/16 12:22 08/12/16 12:22 08/12/16 12:22 08/12/16 12:22 Results - Labs CBC & Chem 7: 08/12/16 05:40 08/12/16 05:40 Labs: Last Result Calcium 8.1 mg/dL (8.6-10.8) L 08/12/16 05:40 C-Reactive Protein 75 mg/L (Less than 5) H 08/10/16 14:53 Stool Occult Blood Positive (Negative) A 08/10/16 16:23 Entire Visit Hgb 6.9 g/dL (11.5-15.4) L 08/12/16 05:40 Hct 24.3 % (35.3-44.9) L 08/12/16 05:40 PT 12.3 Seconds (9.4-12.1) H 08/10/16 14:53 Total Bilirubin 0.3 mg/dL (0.2-1.2) 08/10/16 14:53 AST 13 Units/L (5-34) 08/10/16 14:53 ALT 12 Units/L (0-55) 08/10/16 14:53 - ABG ABG results: PT/INR, D-dimer PT 12.3 Seconds (9.4-12.1) H 08/10/16 14:53 - Attending Attestation I examined this patient and my medical decision-making was reviewed with the [employer]PA/Advanced Practice Nurse/Resident Physician. I agree with the documented findings, disposition and treatment plan as described except to the extent set forth below.
[2016-08-12 15:14] VITALS: BP 114/77
--- NOTE | 2016-08-12 17:23 | Oncology Inp Consult Note ---
Date of Encounter: 08/12/16 Time of Encounter: 17:00 Assessment and Plan (1) Bright red blood per rectum Status: Acute Assessment and plan: Rectal mass likely malignancy status post endoscopy biopsy partially obstructing , no evidence of bowel obstruction from imaging/clinically, I will wait for final pathology results. She does not seem to have any metastatic disease and CT abdomen. Further staging with CT scan of the chest versus PET imaging. Concurrent treatment neoadjuvantly with BALANCING MACHINE OPERATOR for rectal malignancy discussed with her briefly, evaluation for surgical resection once CT imaging to r/o mets is completed. Obtain baseline CEA Anemia from active GI bleeding status post multiple transfusion. Iron replacement therapy discussed with medical team. Monitor CBC closely if stable plan to discharge her for outpatient follow-up for further workup and begin treatment. Wt loss/hypoalbuminemia-nutrition evaluation We will update patient of the results once biopsy results available. Plan as above d/w patient and family bedside. - Data of Consult Requesting Physician: Papo Nunez MD Primary Care Provider: Mahi Anderson CNP - Consult Narrative Reason for consult: rectal mass History of present illness: Ms. Nieto is a 45 year old female with no significant past medical history with the episodes of bleeding per rectum for the last several years since 2009 was seen due to diagnosis of rectal mass, patient has been hospitalized due to severe anemia on lab works drawn by her PCP was around 5.2 g. Patient had symptoms suggestive of headaches aches and pains dehydration seeing PCP and lab works came back abnormal for severe anemia. Patient was referred for PRBC she further underwent CT scan of abdomen and pelvis which does not show any metastatic disease, due to history of bleeding patient underwent a colonoscopy that showed a fungating infiltrative ulcerated nonobstructing mass in the midrectum and in the distal rectum extending to the anorectal junction mass is circumferential biopsies were performed results pending. Upper GI endoscopy showed mucosal changes granularity biopsies were obtained. The patient had received several units of PRBC and she is clinically feeling better. Her hemoglobin was 6.9 and she had received 1 more unit of transfusion today. She denies any pain issues she had some constipation and straining during bowel movement but currently none. She denies any abdominal pain. She had lost weight as she is watching her diet. A 14 point review of systems is otherwise negative. Past Med Surg Social Fam HX - Past Medical History Medical history: non-contributory Psychiatric history: no psych history - Past Surgical History Surgical History: herniorrhaphy - Social History Smoking Status: Former smoker Alcohol use: none Drug use: none - Family History Father Living Status: Mother Living Status: Still Living Hx Family Cardiac Disorders: Yes (CHF, a-fib) Hx Family Cancer: Yes (Ovarian cancer) Hx Family Endocrine Disorder: Yes (DM) Medications and Allergies Acetaminophen [Tylenol] 325 mg PO Q6HR PRN 08/10/16 [History] Ciprofloxacin [Cipro] 500 mg PO BID 08/10/16 [History] Allergies codeine Adverse Reaction (Verified 08/10/16 17:24) Migraine Review of systems: as in HPI Oncology - Exam - Constitutional Vitals: Temp Pulse Resp BP Pulse Ox 98.2 F 80 16 114/77 98 08/12/16 15:11 08/12/16 15:11 08/12/16 15:11 08/12/16 15:11 08/12/16 15:11 General appearance: no acute distress, thin - Head Head exam: Present: atraumatic, normal inspection - Eye Eye exam: Present: sclera anicteric - ENT ENT exam: Present: mucous membranes moist - Neck Neck exam: Present: full ROM, normal inspection - Respiratory Respiratory exam: Present: CTAB - Cardiovascular Cardiovascular exam: Present: +S1, +S2 - GI/Abdominal GI/Abdominal exam: Present: normal bowel sounds, soft - Extremities Exam Extremities exam: Present: normal inspection - Neurological Exam Neurological exam: Present: alert, CN II-XII intact, oriented X3 - Psychiatric Psychiatric exam: Present: normal affect - Skin Skin exam: Present: dry, normal color Oncology - Results - Labs Labs: Short CBC 08/11/16 08/12/16 Range/Units 18:46 05:40 WBC 7.6 (4.3-11.1) K/mcL Hgb 6.5 L 6.9 L (11.5-15.4) g/dL Hct 23.2 L 24.3 L (35.3-44.9) % Plt Count 407 H (140-400) K/mcL BMP 08/12/16 05:40 Sodium 141 Potassium 3.7 Chloride 111 H Carbon Dioxide 23 BUN 7 Creatinine 0.74 Glucose 79 Calcium 8.1 L - Imaging and Cardiology CT scan - abdomen Status: image reviewed by me Consult Discharge Plan - Plan Referrals: Mahi Anderson, AIRCRAFT POWERPLANT REPAIRER [Primary Care Provider] -
[2016-08-12 17:37] LABS: Hematocrit 30.5 % (35.3-44.9)
[2016-08-12 17:38] LABS: Hemoglobin 8.7 g/dL (11.5-15.4)
--- NOTE | 2016-08-12 17:55 | Discharge Summary ---
Date of Encounter: 08/12/16 Time of Encounter: 17:00 - Discharge Diagnosis (1) Rectal mass Priority: Primary Status: Acute (2) Anemia Priority: Primary Status: Acute Qualifiers: Anemia type: iron deficiency Iron deficiency anemia type: chronic blood loss Qualified Code(s): D50.0 - Iron deficiency anemia secondary to blood loss (chronic) (3) Bright red blood per rectum Priority: Primary Status: Acute (4) Unintentional weight loss Priority: Primary Status: Acute (5) DVT prophylaxis Priority: Secondary Status: Acute - Discharge Medications Home Medications: Acetaminophen [Tylenol] 325 mg PO Q6HR PRN 08/10/16 [History] Ciprofloxacin [Cipro] 500 mg PO BID 08/10/16 [History] Allergies/Adverse Reactions: Allergies codeine Adverse Reaction (Verified 08/10/16 17:24) Migraine - Notes to Outpatient Provider 1. Please repeat hemoglobin level in one week. 2. patient was advised to go to ER immediately if there is active bleeding. Date of admission: 08/10/16 17:11 Primary care physician: Mahi Anderson CNP Consults: 08/10/16 20:05 Consult to Gastroenterology [CONS] Routine Consulting Provider: [facility] [place] Reason for Consult: GI bleed. Patient reports bloody stools on and off for years. Hgb 5.0 Call Completed: No 08/12/16 11:32 Consult to Oncology [CONS] Routine Consulting Provider: [facility] [place] Reason for Consult: Likely malignant tumor in the mid rectum and distal sigmoid colon Call Completed: No Discharging clinician: Papo Nunez Anticipated date of discharge: 08/12/16 - Patient Status Disposition: Home, Self-Care Condition: Fair Overall status at discharge: patient is back to baseline - Discharge Instructions Follow Up With: Mahi Anderson CNP [Primary Care Provider] - - Diet and Activity Activity: increase activity as tolerated Diet: advance to your usual diet Interval History: Ms. Nieto is a 45 year old female with no significant past medical history presented to the emergency department on instruction of her primary care provider when lab results from yesterday's visit came back showing a hemoglobin of 5.2. Patient had presented to primary care with complaints of headache, fatigue, chills and sweats. Patient reports that she felt like last week she overdid it when caring for her mother and realized she had not eaten all day and felt dehydrated. She reported symptoms of a headache, fatigue, aches and pains, and tried to treat at home with fluids. When she did not feel better on Tuesday she went to the PCP who angel labs. Hemoglobin came back 5.0. Patient reports that she does have occasional bright red blood per rectum and in her stools on and off since 2009. She attributed that to hemorrhoids and constipation. He also reports unintentional weight loss in the last 6 months, reporting she went from a size 4 to size 2. Evaluation in the emergency department revealed positive bright red blood per rectum, hemoglobin of 5.0, hematocrit of 19.7. Albumin was low at 2.6, TSH was within normal limits. Chest x-ray showed no acute cardiopulmonary disease. Patient was given 1 L of fluids and 2 units of packed red blood cells were ordered. CT of the abdomen and pelvis and CT of the head are ordered and pending. On exam, patient is cachectic, alert and oriented, in no acute distress. Heart has regular rate and rhythm, lungs are clear bilaterally to auscultation. Hospital course: Ms. Nieto is a 45 year old female admitted for anemia and rectal bleeding. She was treated with transfusion. GI consult was called and colonoscopy and EGD has been done. Patient was found rectal mass. Biopsy has been sent. Oncology consult saw patient and will arrange outpatient follow-up. After colonoscopy, patient has no further rectal bleed. Hemoglobin increased to 8.7 after transfusion. patient eagerly to go home. she promised will repeat hemoglobin with either her PCP or oncology in next week and came back to emergency room if there is further active bleeding. Patient will give 200 mg by venofer once before discharge. She will discharge home and f/u with oncology as outpatient. I saw and examined the patient today. She is awake alert, oriented 3. Denies dizziness, lightheaded. Vital signs stable. Patient said she had bowel movement today, no rectal bleeding. patient will follow up with oncology as outpatient. - Time Spent with Patient Total time spent providing and/or coordinating discharge services: 40 min Greater than 30 minutes - Constitutional Vitals: Temp Pulse Resp BP Pulse Ox 98.2 F 80 16 114/77 98 08/12/16 15:11 08/12/16 15:11 08/12/16 15:11 08/12/16 15:11 08/12/16 15:11 General appearance: Present: A&O X 3, pleasant, no acute distress, answers questions appropriately - Head Head exam: Present: atraumatic, normocephalic - Eye Eye exam: Present: PERRL, conjuntiva pink, sclera anicteric Pupils: Present: PERRL - Neck Neck exam general surgery: Present: supple, trachea midline. Absent: lymphadenopathy - Respiratory Respiratory exam: Present: CTAB. Absent: accessory muscle use, rales, rhonchi, wheezes - Cardiovascular Cardiovascular exam: Present: RRR, +S1, +S2. Absent: diastolic murmur, gallop, rubs, systolic murmur - GI/Abdominal GI/Abdominal exam: Present: normal bowel sounds, soft, no peritoneal signs. Absent: distended, tenderness - Extremities Exam Extremities exam: Present: warm, radial pulses palpable and symetrical. Absent : calf tenderness, cyanotic, pedal edema - Neurological Exam Neurological exam: Present: CN II-XII intact, oriented X3, no focal deficits. Absent: pronater drift, facial droop, speech deficit - Skin Skin exam: Present: dry, intact - VTE Documentation of Mechanical Device: Intermittent pneumatic compression device
[2016-08-12] MEDS ORDERED: Iron Sucrose Complex 200 MG in 0.9 % Sodium Chloride 100 ML IVPB ONE (18:00)
== END 2016-08-12 19:30 | disposition home or self-care (01) | DRG 377 ==
LOC: EMEROO 13:44 → 2NENU 17:11 → SUATTDRO 17:11 → 2NENU 18:40
PROVIDERS: ADMIT Nurse Practitioner Family; ATTEND Internal Medicine
PROC: ENDOEBX (2016-08-11 15:00)
PROC: ENDOCBX (2016-08-11 15:00)